=== PATIENT | female | born 1965 | race Caucasian/White ===

== ENCOUNTER → 2016-06-09 | Outpatient (CLI) | payer OTHER ==
[2016-06-09 12:22] LABS: Basophils % (A) 1 %; CH 29.8; CHCM 32.4; Eosinophils # (A) 0.2 k/uL (0-0.7); Eosinophils % (A) 4 %; HDW 2.22; Luc # (Auto) 0.09; Luc % (Auto) 2; Lymphocytes # (A) 1.4 k/uL (1.0-4.8); Lymphocytes % (A) 28 %; MCHC 32.4 g/dL (31.0-37.0); MCV 92.4 fL (80.0-100.0); Mean Platelet Volume 7.8; Monocytes # (A) 0.3 k/uL (0-1.0); Monocytes % (A) 6 %; Neutrophils % (A) 60 %; RBC 4.66 m/uL (3.80-5.40); RDW 12.9 % (11.5-15.5); WBC (Perox) 4.78
[2016-06-09 12:56] LABS: ALT 55 U/L (9-52); AST 44 U/L (14-36); Alkaline Phosphatase 78 U/L (38-126); Anion Gap 11 mmol/L; Blood Urea Nitrogen 13 mg/dL (7-17); Calcium 10.3 mg/dL (8.4-10.2); Carbon Dioxide 26 mmol/L (22-30); Chloride 103 mmol/L (98-107); Cholesterol 192 mg/dL (<200); Glucose 101 mg/dL (74-99); HDL Cholesterol 106 mg/dL (40-60); Non-African American GFR(MDRD) >60 (>60 ml/min/1.73 sqM); Potassium 4.6 mmol/L (3.5-5.1); Sodium 140 mmol/L (137-145); Total Bilirubin 0.5 mg/dL (0.2-1.3); Total Protein 7.4 g/dL (6.3-8.2); Triglycerides 43 mg/dL (<150)
[2016-06-09 14:37] LABS: Hemoglobin A1C 5.6 % (4.2-6.1)
== END | disposition home or self-care (01) ==
LOC: LABWHC1 11:42
PROVIDERS: ATTEND Family Medicine
DX: Z00.00 Encounter for general adult medical examination without abnormal findings (principal)
CPT/HCPCS: 36415; 80053; 80061; 83036; 84443; 85025

== ENCOUNTER → 2016-07-21 | Outpatient (CLI) | payer OTHER ==
--- NOTE | 2016-07-25 10:03 | MM ---
Reason for exam: screening (asymptomatic). Last mammogram was performed 1 year and 3 months ago. History: Patient is postmenopausal and is nulliparous. Benign excisional biopsy of the right breast, 2004. Physical Findings: A clinical breast exam by your physician is recommended on an annual basis and results should be correlated with mammographic findings. MG Screening Mammo w CAD Bilateral CC and MLO view(s) were taken. Prior study comparison: April 09, 2015, mammogram, performed at [facility]. June 21, 2013, mammogram, performed at [facility]. There are scattered fibroglandular densities. No significant changes when compared with prior studies. ASSESSMENT: Benign, BI-RAD 2 RECOMMENDATION: Routine screening mammogram of both breasts in 1 year.
== END | disposition home or self-care (01) ==
LOC: RADMAMWWP 11:41
PROVIDERS: ATTEND Family Medicine
DX: Z12.31 Encounter for screening mammogram for malignant neoplasm of breast (principal)

== ENCOUNTER 2016-09-03 23:33 | Emergency (ER) | payer OTHER ==
[2016-09-04 00:04] VITALS: BP 122/66; PULSE 61; RESP 18; TEMP 98.3
--- NOTE | 2016-09-04 00:25 | ED ---
General Adult HPI - General Chief complaint: Anxiety Stated complaint: neck/head tightness Time Seen by Provider: 09/04/16 00:00 Source: patient, RN notes reviewed Mode of arrival: ambulatory Limitations: no limitations - History of Present Illness Initial comments: This is a 51-year-old female presents emergency Department complaining of being under a lot of stress lately. Patient states she's been having some tension in her trapezius muscles bilaterally and normally she gets a massage which she hasn 't done so recently and the tension is getting a little bit greater lately. Patient states her job at work stressful enough but she also works with somebody who is very stressed out. Patient states she does not want anything for the tension in her trapezius muscle she has not taken any medication she's not stretched and she does not use any warm compresses. Patient denies any chest pain difficulty breathing or shortness of breath. Patient denies any pain down either of her arms. Patient denies any recent fever chills or cough. Patient states touching her trapezius muscles is a little sore. Patient denies any headache patient denies numbness weakness. Patient denies lightheadedness dizziness or near syncopal episode. - Related Data Previous Rx's Medication Instructions Recorded Diazepam [Valium] 5 mg PO Q6H #10 tab 09/04/16 Allergies Allergy/AdvReac Type Severity Reaction Status Date / Time No Known Allergies Allergy Verified 09/04/16 00:04 Review of Systems ROS Statement: Those systems with pertinent positive or pertinent negative responses have been documented in the HPI. ROS Other: All systems not noted in ROS Statement are negative. Past Medical History Additional Past Medical History / Comment(s): anemia History of Any Multi-Drug Resistant Organisms: None Reported Past Surgical History: Breast Surgery Additional Past Surgical History / Comment(s): biopsy of left breast Past Psychological History: Anxiety Smoking Status: Never smoker Past Alcohol Use History: None Reported Past Drug Use History: None Reported General Exam - General Exam Comments Initial Comments: GENERAL: Patient is well-developed and well-nourished. Patient is nontoxic and well- hydrated and is in no acute distress. ENT: Neck is soft and supple. No significant lymphadenopathy is noted. Oropharynx is clear. Moist mucous membranes. Neck has full range of motion without eliciting any pain. EYES: The sclera were anicteric and conjunctiva were pink and moist. Extraocular movements were intact and pupils were equal round and reactive to light. Eyelids were unremarkable. PULMONARY: Unlabored respirations. Good breath sounds bilaterally. No audible rales rhonchi or wheezing was noted. CARDIOVASCULAR: There is a regular rate and rhythm without any murmurs gallops or rubs. ABDOMEN: Soft and nontender with normal bowel sounds. No palpable organomegaly was noted. There is no palpable pulsatile mass. SKIN: Skin is clear with no lesions or rashes and otherwise unremarkable. NEUROLOGIC: Patient is alert and oriented x3. Cranial nerves II through XII are grossly intact. Motor and sensory are also intact. Normal speech, volume and content. Symmetrical smile. MUSCULOSKELETAL: Normal extremities with adequate strength and full range of motion. No lower extremity swelling or edema. No calf tenderness. Patient has slight tenderness to palpation of her trapezius muscles PSYCHIATRIC: Patient is mildly anxious Limitations: no limitations Course Vital Signs 09/04/16 00:01 Temperature 98.3 F Pulse Rate 61 Respiratory 18 Rate Blood Pressure 122/66 O2 Sat by Pulse 96 Oximetry Disposition Clinical Impression: Anxiety, Stress at work Disposition: HOME SELF-CARE Instructions: Generalized Anxiety Disorder (ED) Prescriptions: Diazepam [Valium] 5 mg PO Q6H #10 tab Referrals: Sulema Nicole MD [Primary Care Provider] - 1-2 days Time of Disposition: 00:24
== END 2016-09-04 00:36 | disposition home or self-care (01) ==
LOC: EC 23:33
DX: F41.9 Anxiety disorder, unspecified (principal); Z56.3 Stressful work schedule; M79.1 Myalgia
CPT/HCPCS: 99283

== ENCOUNTER 2016-10-04 08:16 | Emergency (ER) | payer OTHER ==
[2016-10-04 08:33] VITALS: BP 119/57; PULSE 62; RESP 18; TEMP 97.7
--- NOTE | 2016-10-04 08:43 | ED ---
General Adult HPI - General Chief complaint: Extremity Problem,Nontraumatic Stated complaint: BURNING IN LEFT CALF Time Seen by Provider: 10/04/16 08:30 Source: patient, RN notes reviewed Mode of arrival: ambulatory Limitations: no limitations - History of Present Illness Initial comments: Patient 51-year-old female who presents emergency room today with a chief complaint of bilateral calf pain with a burning type sensation with some numbness and tingling down to her toes bilaterally off-and-on. States currently not feeling this way. 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 States she believes that she was out in the cold for to long she noticed that there is some numbness tingling to her feet. States that since that time she's had some symptoms on and off of numbness and tingling to her toes with a burning sensation in her cast. States she's currently not feeling that way but has had the symptoms off and on seems to be worse when she is up and moving around. She states she's been at home helping taking care of her mother who was has her on the wrong and she states sometimes she just feels like she needs to relax. Patient states that the pain does reduce when she is up and moving around. Currently not having the pain at this time. Has talked to her family doctor about this. Has had labs obtained. Family doctor did discuss doing shows therapy for this. Patient states she was concerned she just doesn't want to get any worse. She states currently not taking any medicines for this. She states she has not tried any Tylenol or Motrin. Has not done anything else for the symptoms. Patient states all the symptoms are consistent with symptoms that she's been experiencing for the past 2 months with no new injuries or trauma to the area or new symptoms. Patient denies any recent fever, chills, shortness of breath, chest pain, back pain, abdominal pain, nausea or vomiting, dysuria or hematuria, constipation or diarrhea, headaches or visual changes, or any other complaints. - Related Data Previous Rx's Medication Instructions Recorded Diazepam [Valium] 5 mg PO Q6H #10 tab 09/04/16 Ibuprofen [Motrin] 600 mg PO Q6HR PRN #30 day 10/04/16 Allergies Allergy/AdvReac Type Severity Reaction Status Date / Time No Known Allergies Allergy Verified 09/04/16 00:04 Review of Systems ROS Statement: Those systems with pertinent positive or pertinent negative responses have been documented in the HPI. ROS Other: All systems not noted in ROS Statement are negative. Past Medical History Additional Past Medical History / Comment(s): anemia History of Any Multi-Drug Resistant Organisms: None Reported Past Surgical History: Breast Surgery Additional Past Surgical History / Comment(s): biopsy of left breast Past Psychological History: Anxiety Smoking Status: Never smoker Past Alcohol Use History: None Reported Past Drug Use History: None Reported General Exam - General Exam Comments Initial Comments: General: The patient is awake and alert, in no distress, and does not appear acutely ill. Neck: The neck is supple, there is no tenderness or JVD. Cardiovascular: There is a regular rate and rhythm. No murmur, rub or gallop is appreciated. Respiratory: Lungs are clear to auscultation, respirations are non-labored, breath sounds are equal. No wheezes, stridor, rales, or rhonchi. Musculoskeletal: Full range of motion. Sensation intact. Pulses equal bilaterally 2+. Strength 5/5. Neurological: A&O x 3. CN II-XII intact, There are no obvious motor or sensory deficits. Coordination appears grossly intact. Speech is normal. Skin: Skin is warm and dry and no rashes or lesions are noted. Psychiatric: Normal mood and affect. Limitations: no limitations Course Vital Signs 10/04/16 08:26 Temperature 97.7 F Pulse Rate 62 Respiratory 18 Rate Blood Pressure 119/57 O2 Sat by Pulse 99 Oximetry Medical Decision Making - Medical Decision Making Lungs discussed with patient about her symptoms. She states currently medical having any symptoms at this time but does worry because the symptoms seem to come and go she does not want to get any worse. She has not tried any Tylenol ibuprofen. She has follow-up the family doctor's had labs obtained. There is no reinjury no trauma to the area and these are the same symptoms that she's been experiencing for the past 2 months. At this time is recommended patient to try some ibuprofen. She is advised to try [id number] ibuprofen. She states she is worried that she does not have any money and feels like possibly her insurance will cover for prescription. She will be given a prescription for ibuprofen 600 mg. Patient is advised faulted family doctor over the next 2 days or return here to the emergency room if any symptoms increase or worsen or for any other concerns. Disposition Clinical Impression: Paresthesia Disposition: HOME SELF-CARE Condition: Good Instructions: Paresthesia (ED) Additional Instructions: Please use medication as discussed. Please follow-up with family doctor in the next 2 days of symptoms have not improved. Please return to emergency room if the symptoms increase or worsen or for any other concerns. Prescriptions: Ibuprofen [Motrin] 600 mg PO Q6HR PRN #30 day PRN Reason: Pain Referrals: Sulema Nicole MD [Primary Care Provider] - 1-2 days Time of Disposition: 08:42
== END 2016-10-04 09:09 | disposition home or self-care (01) ==
LOC: EC 08:16
DX: R20.9 Unspecified disturbances of skin sensation (principal); M79.605 Pain in left leg; M79.604 Pain in right leg
CPT/HCPCS: 99282

== ENCOUNTER 2016-12-21 00:24 | Emergency (ER) | payer OTHER ==
[2016-12-21 00:35] VITALS: RESP 18
[2016-12-21] MEDS ORDERED: KETOROLAC 60 MG/2 ML VIAL IM STA (00:43)
--- NOTE | 2016-12-21 00:47 | ED ---
General Adult HPI - General Chief complaint: Fall Stated complaint: fall Time Seen by Provider: 12/21/16 00:38 Source: patient, RN notes reviewed Mode of arrival: ambulatory Limitations: no limitations - History of Present Illness Initial comments: 51 yo female presents to the emergency department with a chief complaint of fall. Patient was jogging and she fell. Patient states she landed onto her left wrist and both knees. Patient states she has some minimal neck and back pain as well. He states she did not hit her head. She did not lose consciousness. Patient states the Road eye contact is able to get up she went back home but she just continued to have some neck pain and some back pain and some knee pain at the wrist pain so she thought that she could use some x-rays. Patient denies any other injury from the incident. Patient states she is not currently having any other symptoms. Patient denies any recent fever, chills, shortness of breath, chest pain, abdominal pain, nausea vomiting, numbness or tingling, dysuria or hematuria, constipation or diarrhea, headaches or visual changes, or any other current symptoms. - Related Data Home Medications Medication Instructions Recorded Confirmed No Known Home Medications [No 12/21/16 12/21/16 Known Home Medications] Allergies Allergy/AdvReac Type Severity Reaction Status Date / Time No Known Allergies Allergy Verified 12/21/16 00:35 Review of Systems ROS Statement: Those systems with pertinent positive or pertinent negative responses have been documented in the HPI. ROS Other: All systems not noted in ROS Statement are negative. Past Medical History Additional Past Medical History / Comment(s): anemia History of Any Multi-Drug Resistant Organisms: None Reported Past Surgical History: Breast Surgery Additional Past Surgical History / Comment(s): biopsy of left breast Past Psychological History: Anxiety Smoking Status: Never smoker Past Alcohol Use History: None Reported Past Drug Use History: None Reported General Exam Limitations: no limitations General appearance: alert, in no apparent distress Eye exam: Present: normal appearance, PERRL, EOMI. Absent: scleral icterus, conjunctival injection, periorbital swelling ENT exam: Present: normal exam, mucous membranes moist Neck exam: Present: normal inspection. Absent: tenderness, meningismus, lymphadenopathy Respiratory exam: Present: normal lung sounds bilaterally. Absent: respiratory distress, wheezes, rales, rhonchi, stridor Cardiovascular Exam: Present: regular rate, normal rhythm, normal heart sounds. Absent: systolic murmur, diastolic murmur, rubs, gallop, clicks Extremities exam: Present: full ROM, normal capillary refill. Absent: normal inspection (Abrasions to bilateral knees.), tenderness, pedal edema, joint swelling, calf tenderness Back exam: Present: normal inspection, full ROM. Absent: tenderness Neurological exam: Present: alert, oriented X3 Psychiatric exam: Present: normal affect, normal mood Skin exam: Present: warm, dry, intact, normal color. Absent: rash Course Vital Signs 12/21/16 00:31 Temperature 97.2 F L Pulse Rate 75 Respiratory 18 Rate Blood Pressure 107/60 O2 Sat by Pulse 98 Oximetry Medical Decision Making - Medical Decision Making 51-year-old female presents emergency department with a chief complaint of fall. This time x-rays are reviewed and negative. Patient appears to have bilateral knee contusions. As well as abrasions. We discussed Motrin Tylenol for pain is in the [place] the end of the plan. All questions have. They will be discharged home. - Radiology Data Radiology results: report reviewed, image reviewed Disposition Clinical Impression: Fall, Abrasion of knee, bilateral, Left wrist sprain, Lumbar strain, Cervical strain Disposition: HOME SELF-CARE Condition: Stable Instructions: Muscle Strain (ED), Abrasion (ED) Additional Instructions: Please use medication as discussed. Please follow up with family doctor if symptoms have not improved over the next two days. Please return to the emergency room if your symptoms increase or worsen or for any other concerns. Referrals: Sulema Nicole MD [Primary Care Provider] - 1-2 days Time of Disposition: 02:11
--- NOTE | 2016-12-21 02:01 | XR ---
EXAM: XR Cervical Spine, 4 or 5 Views CLINICAL HISTORY: Reason: Pain TECHNIQUE: Frontal, lateral and oblique views of the cervical spine. COMPARISON: 08/24/2014 FINDINGS: Vertebrae: Unremarkable. No acute fracture. Normal alignment. Disc spaces: Moderate foraminal narrowing involving C5-C6 again seen on the left. Soft tissues: Unremarkable. IMPRESSION: Moderate foraminal narrowing involving C5-C6 again seen on the left.
--- NOTE | 2016-12-21 02:03 | XR ---
EXAM: XR Left Knee, 3 views XR Right Knee, 3 views CLINICAL HISTORY: Reason: Pain TECHNIQUE: Three views of the bilateral knees. COMPARISON: No relevant prior studies available. FINDINGS: Bones/joints: Unremarkable. No acute fracture. No dislocation. Soft tissues: Unremarkable. IMPRESSION: Normal bilateral knee x-rays.
--- NOTE | 2016-12-21 02:03 | XR ---
EXAM: XR Lumbar Spine, 2 or 3 Views CLINICAL HISTORY: Reason: Pain TECHNIQUE: Frontal and lateral views of the lumbar spine. COMPARISON: No relevant prior studies available. FINDINGS: Vertebrae: Unremarkable. No acute fracture. Normal alignment. Disc spaces: No acute findings. No significant narrowing. Soft tissues: Unremarkable. IMPRESSION: Normal lumbar spine x-rays.
--- NOTE | 2016-12-21 02:07 | XR ---
EXAM: XR Left Wrist Complete, 3 or More Views CLINICAL HISTORY: Reason: Pain TECHNIQUE: Frontal, lateral and oblique views of the left wrist. COMPARISON: No relevant prior studies available. FINDINGS: Bones/joints: There is no evidence of an acute fracture dislocation. Well ossified punctate radiopaque structure distal to the ulnar styloid is likely from prior trauma. Soft tissues: Subtle soft tissue swelling is suspected overlying the wrist. No radiopaque foreign body. IMPRESSION: Subtle soft tissue swelling overlies the wrist. Well ossified punctate radiopaque structure distal to the ulnar styloid is likely from prior trauma. No radiographic evidence of acute osseous injury.
[2016-12-21 02:28] VITALS: BP 110/76; PULSE 71; TEMP 97.8
== END 2016-12-21 02:28 | disposition home or self-care (01) ==
LOC: EC 00:24
DX: S16.1XXA Strain of muscle, fascia and tendon at neck level, initial encounter (principal); S39.012A Strain of muscle, fascia and tendon of lower back, initial encounter; S63.502A Unspecified sprain of left wrist, initial encounter; S80.212A Abrasion, left knee, initial encounter; S80.211A Abrasion, right knee, initial encounter; W19.XXXA Unspecified fall, initial encounter
CPT/HCPCS: 72050; 72100; 99283

== ENCOUNTER 2019-03-30 09:40 | Emergency (ER) | payer OTHER ==
[2019-03-30 09:56] VITALS: RESP 20
[2019-03-30] MEDS ORDERED: SODIUM CHLORIDE 0.9% 1,000 ML IV STA (10:11)
--- NOTE | 2019-03-30 10:46 | ED ---
Abdominal Pain HPI - General Chief Complaint: Abdominal Pain Stated Complaint: Yellow urine Time Seen by Provider: 03/30/19 10:04 Source: patient, RN notes reviewed Mode of arrival: ambulatory Limitations: no limitations - History of Present Illness Initial Comments: This 53-year-old female presents emergency Department chief complaint of dark urine concerned about hepatitis. Patient states that she is [facility] She states that there are signs stating that hepatitis a is going around. She states that her urine is very dark and melanotic no she's been drinking more water than usual. Patient though admits that she has been taking vitamins. Patient states that she's had some intermittent left-sided abdominal pain states that she was constipated states that she did have a bowel movement in symptoms resolved. She has no dysuria denies any nausea, vomiting, fever, chills, chest pain or shortness of breath. She's had no prior abdominal surgeries no significant health problems. - Related Data Home Medications Medication Instructions Recorded Confirmed No Known Home Medications 12/21/16 12/21/16 Allergies Allergy/AdvReac Type Severity Reaction Status Date / Time No Known Allergies Allergy Verified 03/30/19 09:48 Review of Systems ROS Statement: Those systems with pertinent positive or pertinent negative responses have been documented in the HPI. ROS Other: All systems not noted in ROS Statement are negative. Past Medical History Additional Past Medical History / Comment(s): anemia History of Any Multi-Drug Resistant Organisms: None Reported Past Surgical History: Breast Surgery Additional Past Surgical History / Comment(s): biopsy of left breast Past Psychological History: Anxiety Smoking Status: Never smoker Past Alcohol Use History: None Reported Past Drug Use History: None Reported General Exam Limitations: no limitations General appearance: alert, in no apparent distress Head exam: Present: atraumatic, normocephalic, normal inspection Eye exam: Present: normal appearance, PERRL, EOMI. Absent: scleral icterus, conjunctival injection, periorbital swelling ENT exam: Present: normal exam, normal oropharynx, mucous membranes moist Neck exam: Present: normal inspection, full ROM. Absent: tenderness, meningismus, lymphadenopathy Respiratory exam: Present: normal lung sounds bilaterally. Absent: respiratory distress, wheezes, rales, rhonchi, stridor Cardiovascular Exam: Present: regular rate, normal rhythm, normal heart sounds. Absent: systolic murmur, diastolic murmur, rubs, gallop, clicks GI/Abdominal exam: Present: soft, normal bowel sounds. Absent: distended, tenderness, guarding, rebound, rigid Back exam: Absent: CVA tenderness (R), CVA tenderness (L) Neurological exam: Present: alert, oriented X3, CN II-XII intact Psychiatric exam: Present: normal affect, normal mood Skin exam: Present: warm, dry, intact, normal color. Absent: rash Course Vital Signs 03/30/19 03/30/19 03/30/19 09:45 09:56 11:09 Temperature 97.3 F L 96.7 F L Pulse Rate 84 59 L Respiratory 18 20 20 Rate Blood Pressure 132/75 103/64 O2 Sat by Pulse 97 100 Oximetry Medical Decision Making - Medical Decision Making Labs and urinalysis unremarkable. Patient's abdomen is benign. Patient urine was dark mostly related to her vitamin or more concentrated urine. At this time remains unremarkable patient will be discharged. - Lab Data Result diagrams: 03/30/19 10:45 03/30/19 10:45 Lab Results 03/30/19 03/30/19 03/30/19 Range/Units 10:45 10:45 11:00 WBC 5.2 (3.8-10.6) k/uL RBC 5.05 (3.80-5.40) m/uL Hgb 15.4 (11.4-16.0) gm/dL Hct 47.2 H (34.0-46.0) % MCV 93.4 (80.0-100.0) fL MCH 30.4 (25.0-35.0) pg MCHC 32.6 (31.0-37.0) g/dL RDW 13.0 (11.5-15.5) % Plt Count 252 (150-450) k/uL Neutrophils % 62 % Lymphocytes % 22 % Monocytes % 6 % Eosinophils % 6 % Basophils % 1 % Neutrophils # 3.3 (1.3-7.7) k/uL Lymphocytes # 1.1 (1.0-4.8) k/uL Monocytes # 0.3 (0-1.0) k/uL Eosinophils # 0.3 (0-0.7) k/uL Basophils # 0.1 (0-0.2) k/uL Sodium 138 (137-145) mmol/L Potassium 4.7 (3.5-5.1) mmol/L Chloride 101 (98-107) mmol/L Carbon Dioxide 27 (22-30) mmol/L Anion Gap 10 mmol/L BUN 17 (7-17) mg/dL Creatinine 0.70 (0.52-1.04) mg/dL Est GFR (CKD-EPI)AfAm >90 (>60 ml/min/1.73 sqM) Est GFR (CKD-EPI)NonAf >90 (>60 ml/min/1.73 sqM) Glucose 84 (74-99) mg/dL Calcium 10.1 (8.4-10.2) mg/dL Total Bilirubin 0.5 (0.2-1.3) mg/dL AST 55 H (14-36) U/L ALT 93 H (9-52) U/L Alkaline Phosphatase 109 (38-126) U/L Total Protein 7.9 (6.3-8.2) g/dL Albumin 4.7 (3.5-5.0) g/dL Amylase 101 (30-110) U/L Lipase 161 (23-300) U/L Urine Color Colorless Urine Appearance Clear (Clear) Urine pH 7.0 (5.0-8.0) Ur Specific [place] 1.004 (1.001-1.035) Urine Protein Negative (Negative) Urine Glucose (UA) Negative (Negative) Urine Ketones Negative (Negative) Urine Blood Negative (Negative) Urine Nitrite Negative (Negative) Urine Bilirubin Negative (Negative) Urine Urobilinogen <2.0 (<2.0) mg/dL Ur Leukocyte Esterase Negative (Negative) Hepatitis A IgM Ab 03/30/19 Range/Units 11:02 WBC (3.8-10.6) k/uL RBC (3.80-5.40) m/uL Hgb (11.4-16.0) gm/dL Hct (34.0-46.0) % MCV (80.0-100.0) fL MCH (25.0-35.0) pg MCHC (31.0-37.0) g/dL RDW (11.5-15.5) % Plt Count (150-450) k/uL Neutrophils % % Lymphocytes % % Monocytes % % Eosinophils % % Basophils % % Neutrophils # (1.3-7.7) k/uL Lymphocytes # (1.0-4.8) k/uL Monocytes # (0-1.0) k/uL Eosinophils # (0-0.7) k/uL Basophils # (0-0.2) k/uL Sodium (137-145) mmol/L Potassium (3.5-5.1) mmol/L Chloride (98-107) mmol/L Carbon Dioxide (22-30) mmol/L Anion Gap mmol/L BUN (7-17) mg/dL Creatinine (0.52-1.04) mg/dL Est GFR (CKD-EPI)AfAm (>60 ml/min/1.73 sqM) Est GFR (CKD-EPI)NonAf (>60 ml/min/1.73 sqM) Glucose (74-99) mg/dL Calcium (8.4-10.2) mg/dL Total Bilirubin (0.2-1.3) mg/dL AST (14-36) U/L ALT (9-52) U/L Alkaline Phosphatase (38-126) U/L Total Protein (6.3-8.2) g/dL Albumin (3.5-5.0) g/dL Amylase (30-110) U/L Lipase (23-300) U/L Urine Color Urine Appearance (Clear) Urine pH (5.0-8.0) Ur Specific [place] (1.001-1.035) Urine Protein (Negative) Urine Glucose (UA) (Negative) Urine Ketones (Negative) Urine Blood (Negative) Urine Nitrite (Negative) Urine Bilirubin (Negative) Urine Urobilinogen (<2.0) mg/dL Ur Leukocyte Esterase (Negative) Hepatitis A IgM Ab NEGATIVE Disposition Clinical Impression: Abdominal pain Disposition: HOME SELF-CARE Condition: Stable Instructions (If sedation given, give patient instructions): Abdominal Pain (ED) Additional Instructions: Please return to the Emergency Department if symptoms worsen or any other concerns. Is patient prescribed a controlled substance at d/c from ED?: No Referrals: None,Stated [Primary Care Provider] - 1-2 days Time of Disposition: 11:55
[2019-03-30 11:05] LABS: Basophils # (A) 0.1 k/uL (0-0.2); Basophils % (A) 1 %; Eosinophils # (A) 0.3 k/uL (0-0.7); Eosinophils % (A) 6 %; HCT 47.2 % (34.0-46.0); HGB 15.4 gm/dL (11.4-16.0); Lymphocytes # (A) 1.1 k/uL (1.0-4.8); Lymphocytes % (A) 22 %; MCH 30.4 pg (25.0-35.0); MCHC 32.6 g/dL (31.0-37.0); MCV 93.4 fL (80.0-100.0); Mean Platelet Volume 6.6; Monocytes # (A) 0.3 k/uL (0-1.0); Monocytes % (A) 6 %; Neutrophils # (A) 3.3 k/uL (1.3-7.7); Neutrophils % (A) 62 %; Platelet Count 252 k/uL (150-450); RBC 5.05 m/uL (3.80-5.40); WBC 5.2 k/uL (3.8-10.6)
[2019-03-30 11:08] LABS: Appearance,Urine Clear (Clear); Bilirubin,Urine Negative (Negative); Blood,Urine Negative (Negative); Color,Urine Colorless; Glucose,Urine (UA) Negative (Negative); Ketones,Urine Negative (Negative); Leukocyte Esterase,Urine Negative (Negative); Nitrite,Urine Negative (Negative); Protein,Urine Negative (Negative); Specific Gravity,Urine 1.004 (1.001-1.035); Urobilinogen,Urine <2.0 mg/dL (<2.0)
[2019-03-30 11:11] VITALS: BP 103/64; TEMP 96.7
[2019-03-30 11:22] LABS: ALT 93 U/L (9-52); AST 55 U/L (14-36); African American GFR (CKD) >90 (>60 ml/min/1.73 sqM); Albumin 4.7 g/dL (3.5-5.0); Alkaline Phosphatase 109 U/L (38-126); Amylase 101 U/L (30-110); Anion Gap 10 mmol/L; Blood Urea Nitrogen 17 mg/dL (7-17); Calcium 10.1 mg/dL (8.4-10.2); Carbon Dioxide 27 mmol/L (22-30); Chloride 101 mmol/L (98-107); Glucose 84 mg/dL (74-99); Non-African American GFR(CKD) >90 (>60 ml/min/1.73 sqM); Potassium 4.7 mmol/L (3.5-5.1); Sodium 138 mmol/L (137-145); Total Bilirubin 0.5 mg/dL (0.2-1.3); Total Protein 7.9 g/dL (6.3-8.2)
[2019-03-30 11:51] LABS: Hepatitis A Antibody IgM NEGATIVE
[2019-03-30 12:11] VITALS: PULSE 67
[2019-03-30 20:14] LABS: Hepatitis B Core IgM Non-Reactive (Non-Reactive); Hepatitis B Surface Antigen Non-Reactive (Non-Reactive); Hepatitis C IgG Antibody Non-Reactive (Non-Reactive)
== END 2019-03-30 12:10 | disposition home or self-care (01) ==
LOC: EC 09:40
DX: R10.9 Unspecified abdominal pain (principal); R82.998 Other abnormal findings in urine
CPT/HCPCS: 36415; 80053; 80074; 81003; 82150; 83690; 85025; 99284